=== PATIENT | female | born 1940 | race Native Hawaiian/Other Pacific Islander ===

== ENCOUNTER 2017-12-15 11:13 | Outpatient (CLI) | payer OTHER | END 2017-12-15 22:50 | disposition home or self-care (01) | LOC: MAMMO 11:13 | DX: Z12.31 Encounter for screening mammogram for malignant neoplasm of breast (principal) ==

== ENCOUNTER 2021-09-04 09:57 | Outpatient (CLI) | payer OTHER | END 2021-09-04 19:25 | disposition home or self-care (01) | LOC: MAMMO 09:57 | PROVIDERS: ATTEND Specialist | DX: Z12.31 Encounter for screening mammogram for malignant neoplasm of breast (principal) ==

== ENCOUNTER 2022-08-27 08:52 | Outpatient (CLI) | payer OTHER | END 2022-08-27 19:13 | disposition home or self-care (01) | LOC: RESP 08:52 | PROVIDERS: ATTEND Internal Medicine | DX: R03.0 Elevated blood-pressure reading, without diagnosis of hypertension (principal); E78.49 Other hyperlipidemia; R53.83 Other fatigue; R00.2 Palpitations; E11.9 Type 2 diabetes mellitus without complications; Z79.899 Other long term (current) drug therapy | CPT/HCPCS: 93225 ==